=== PATIENT | female | born 1950 | race Two or more races ===

== ENCOUNTER 2022-03-24 07:12 | Outpatient (CLI) | payer OTHER | END 2022-03-24 07:13 | disposition home or self-care (01) | LOC: NUCLEAR 07:12 | PROVIDERS: ATTEND Internal Medicine | DX: I20.8 Other forms of angina pectoris (principal); I11.9 Hypertensive heart disease without heart failure; E78.2 Mixed hyperlipidemia | CPT/HCPCS: 78452; 93017; A9500; J0153 ==